=== PATIENT | female | born 1955 | race Caucasian/White ===

== ENCOUNTER 2017-07-18 05:51 | Day surgery (SDC) | payer BC ==
[2017-07-18] MEDS ORDERED: SUBLIMAZE 100 MCG/2 ML IV ONE (05:52)
[2017-07-18] MEDS ORDERED: TRANDATE 20 MG/5 ML SYRINGE IV ONE (05:52)
[2017-07-18] MEDS ORDERED: DIPRIVAN 200 MG/20 ML IV ONE (05:52)
[2017-07-18] MEDS ORDERED: Lactated Ringers 1,000 ML IV ONE ×2 (06:43→08:13)
[2017-07-18] MEDS ORDERED: Lactated Ringers 1,000 ML IV SCH (07:00)
--- NOTE | 2017-07-18 10:55 | OP ---
SURGERY DATE: 07/18/17 SURGERY TIME: 734 PREOPERATIVE DIAGNOSIS: 1. SCREENING COLONOSCOPY. 2. HISTORY OF COLON POLYPS. POSTOPERATIVE DIAGNOSIS: 1. NORMAL COLON. PROCEDURE: 1. Colonoscopy. SURGEON: Dr. Jeffy Ceaj. ANESTHESIA: MAC by Deshaun Esquivel CRNA. SPECIMENS: None. ESTIMATED BLOOD LOSS: None. DESCRIPTION OF PROCEDURE: After informed written consent was obtained, the patient was taken to the endoscopy suite. She underwent monitored anesthesia and a digital rectal exam showed normal sphincter tone and no internal lesions. The scope was inserted in the rectum and sequentially the entire colonic mucosa was traversed. The level of the cecum was reached and verified with direct visualization of the ileocecal valve. Upon withdrawal, careful mucosal inspection revealed no gross abnormalities. Before withdrawal, retroflexion was performed and showed no internal lesions. The scope was removed and the patient was transferred to the recovery room in excellent condition.
[2017-07-18 12:06] VITALS: O2SAT 100
[2017-07-18 12:07] VITALS: BP 138/76; PULSE 58
== END 2017-07-18 09:10 | disposition home or self-care (01) ==
LOC: SDC 05:51
PROVIDERS: ATTEND Family Medicine
PROC: 0DJD8ZZ Inspection of Lower Intestinal Tract, Via Natural or Artificial Opening Endoscopic (ICD-10-PCS; principal; 2017-07-18)
DX: Z12.11 Encounter for screening for malignant neoplasm of colon (principal); Z86.010 Personal history of colon polyps; I10 Essential (primary) hypertension
CPT/HCPCS: 00810; J2704; J3010

== ENCOUNTER 2019-03-29 03:41 | Emergency (ER) | payer BC ==
--- NOTE | 2019-03-29 04:13 | ERPHSYRPT ---
- History of Present Illness Time Seen by Provider: 03/29/19 04:00 Source: patient Exam Limitations: no limitations Patient Subjective Stated Complaint: SOB Triage Nursing Assessment: Patient ambulated into ED and transferred self to bed. Patient A+O X 3. Patient's skin pink, warm and dry. Patient complains of SOB since 0000 after getting up to use the restroom. Patient's lungs clear a/p anton. No edema noted. Heart tones audible. Patient denies pain or discomfort. Patient states she was treated last week with steroids for bronchititis. Physician History: 63 y/o white female, former smoker, presents with soa for weeks. has a electrical power engineer she see, mil pryor md, for htn. she has an appt with him 03/31/19. pt denies sig cp. denies abd pain. no cough or fever. seen at [facility] last week and dx with bronchitis. tx with steroids. sx not improved. Timing/Duration: week(s) (2) Activities at Onset: none Severity of Dyspnea-Max: mild Severity of Dyspnea-Current: mild Possible Cause: no prior episodes Modifying Factors: Improves With: exertion Associated Symptoms: constant, No cough, No chest pain/discomfort, No lightheadedness, No hemoptysis, No dizziness, No heaviness, No heart racing, No lightheadedness, No productive cough International travel in last 2 weeks: No Allergies/Adverse Reactions: Penicillins Allergy (Mild, Verified 03/29/19 03:44) Rash Sulfa (Sulfonamide Antibiotics) Allergy (Verified 03/29/19 03:44) Home Medications: Calcium [Natural Calcium] 500 mg PO DAILY 07/15/17 [History] Cholecalciferol (Vitamin D3) [Vitamin D3] 400 unit PO DAILY 07/15/17 [History] Losartan Potassium 50 mg [Cozaar 50 MG] 100 mg PO HS 07/15/17 [History] Multivitamin [Multivitamins] 1 each PO DAILY 07/15/17 [History] Raloxifene HCl 60 mg [Evista 60 MG] 60 mg PO DAILY 07/15/17 [History] hydroCHLOROthiazide [Hydrochlorothiazide] 1 tab PO DAILY 03/29/19 [History] Hx Influenza Vaccination/Date Given: Yes Hx Pneumococcal Vaccination/Date Given: No Immunizations Up to Date: Yes - Review of Systems Constitutional: No Symptoms Eyes: No Symptoms Ears, Nose, & Throat: No Symptoms Respiratory: Dyspnea Cardiac: No Symptoms, No Chest Pain Abdominal/Gastrointestinal: No Symptoms Genitourinary Symptoms: No Symptoms Musculoskeletal: No Symptoms Skin: No Symptoms Neurological: No Symptoms Psychological: No Symptoms Endocrine: No Symptoms Hematologic/Lymphatic: No Symptoms Immunological/Allergic: No Symptoms All Other Systems: Reviewed and Negative - Past Medical History Pertinent Past Medical History: Yes Neurological History: No Pertinent History ENT History: No Pertinent History Cardiac History: Hypertension Respiratory History: No Pertinent History Endocrine Medical History: No Pertinent History Musculoskeletal History: Other GI Medical History: Polyps History: No Pertinent History Psycho-Social History: No Pertinent History Female Reproductive Disorders: No Pertinent History Other Medical History: Hepatitis C years ago treated with Harvony. osteopenia - Past Surgical History Past Surgical History: Yes Neuro Surgical History: No Pertinent History Cardiac: No Pertinent History Respiratory: No Pertinent History Gastrointestinal: No Pertinent History Genitourinary: No Pertinent History Musculoskeletal: No Pertinent History Female Surgical History: Section - Social History Smoking Status: Former smoker Exposure to second hand smoke: No Drug Use: none Patient Lives Alone: Yes - Female History Hx Last Menstrual Period: Menopausal Hx Now: No - Nursing Vital Signs Nursing Vital Signs: Initial Vital Signs Temperature 97.6 F 03/29/19 03:46 Pulse Rate 67 03/29/19 03:46 Respiratory Rate 20 03/29/19 03:46 Blood Pressure 164/84 03/29/19 03:46 O2 Sat by Pulse Oximetry 100 03/29/19 03:46 Pain Scale Pain Intensity 0 - Physical Exam General Appearance: no apparent distress, alert, anxiety Eye Exam: PERRL/EOMI, eyes nml inspection Ears, Nose, Throat Exam: hearing grossly normal Neck Exam: normal inspection, non-tender, supple, full range of motion Respiratory Exam: normal breath sounds, lungs clear, airway intact, No chest tenderness, No respiratory distress, No rhonchi, No wheezing, No stridor Cardiovascular/Chest Exam: normal heart sounds, regular rate/rhythm, murmur Abdominal/Gastrointestinal Exam: soft, normal bowel sounds, No tenderness, No guarding Rectal Exam: not done Extremity Exam: non-tender Neurologic Exam: alert, oriented x 3, cooperative, lining setter II-XII nml as tested, normal mood/affect Skin Exam: normal color, warm, dry Lymphatic Exam: No adenopathy SpO2 Interpretation: normal SpO2: 100 O2 Delivery: Room Air - Course EKG Interpreted by Me: RATE ([id number]), Sinus Rhythm, NORMAL AXIS, NORMAL INTERVALS , NORMAL QRS, Other (no changes from comparison ekg dated 11/21/17) Ordered Tests: Active Orders 24 hr Category Date Time 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 Care 03/29/19 04:16 Active EKG-ER Only STAT Care 03/29/19 04:15 Active IV Insertion STAT Care 03/29/19 04:15 Active Pulse Oximetry (ED) STAT Care 03/29/19 04:15 Active CHEST 1 VIEW (PORTABLE) Stat Exams 03/29/19 04:15 Taken CBC W DIFF Stat Lab 03/29/19 04:20 Completed D-DIMER QUANTITATION Stat Lab 03/29/19 04:20 Completed Lactic Acid Stat Lab 03/29/19 04:28 Completed NT PRO BNP Stat Lab 03/29/19 04:20 Completed TROPONIN Q3H Lab 03/29/19 04:20 Completed TROPONIN Q3H Lab 03/29/19 07:15 Ordered TROPONIN Q3H Lab 03/29/19 10:15 Ordered TROPONIN Q3H Lab 03/29/19 13:15 Ordered TROPONIN Q3H Lab 03/29/19 16:15 Ordered Lab/Rad Data: Laboratory Result Diagrams 03/29/19 04:20 Laboratory Results 03/29/19 03/29/19 03/29/19 Range/Units 04:28 04:20 04:20 WBC (4.0-10.5) K/mm3 RBC (4.1-5.4) M/mm3 Hgb (12.0-16.0) gm/dl Hct (35-47) % MCV (78-100) fl MCH (26-32) pg MCHC (32-36) g/dl RDW (11.5-14.0) % Plt Count (150-450) K/mm3 MPV (6-9.5) fl Gran % (36.0-66.0) % Eos # (Auto) (0-0.5) Absolute Lymphs (auto) (1.0-4.6) Absolute Monos (auto) (0.0-1.3) Lymphocytes % (24.0-44.0) % Monocytes % (0.0-12.0) % Eosinophils % (0.00-5.0) % Basophils % (0.0-0.4) % Absolute Granulocytes (1.4-6.9) Basophils # (0-0.4) D-Dimer 351 (215-500) ng/mL Lactic Acid 0.7 (0.4-2.0) Troponin I (0.000-0.034) ng/mL NT-Pro-B Natriuret Pep 72.1 (0-900) pg/mL 03/29/19 03/29/19 Range/Units 04:20 04:20 WBC 9.8 (4.0-10.5) K/mm3 RBC 4.79 (4.1-5.4) M/mm3 Hgb 15.0 (12.0-16.0) gm/dl Hct 45.6 (35-47) % MCV 95.2 (78-100) fl MCH 31.3 (26-32) pg MCHC 32.9 (32-36) g/dl RDW 13.4 (11.5-14.0) % Plt Count 323 (150-450) K/mm3 MPV 10.3 H (6-9.5) fl Gran % 44.7 (36.0-66.0) % Eos # (Auto) 0.31 (0-0.5) Absolute Lymphs (auto) 4.24 (1.0-4.6) Absolute Monos (auto) 0.81 (0.0-1.3) Lymphocytes % 43.5 (24.0-44.0) % Monocytes % 8.3 (0.0-12.0) % Eosinophils % 3.2 (0.00-5.0) % Basophils % 0.3 (0.0-0.4) % Absolute Granulocytes 4.36 (1.4-6.9) Basophils # 0.03 (0-0.4) D-Dimer (215-500) ng/mL Lactic Acid (0.4-2.0) Troponin I < 0.012 (0.000-0.034) ng/mL NT-Pro-B Natriuret Pep (0-900) pg/mL - Progress Progress: unchanged Air Movement: good Progress Note: 03/29/19 05:18 cxr-no acute process. Blood Culture(s) Obtained: No Antibiotics given: No Counseled pt/family regarding: lab results, diagnosis, need for follow-up, rad results - Departure Departure Disposition: Home Clinical Impression: Shortness of breath Condition: Stable Critical Care Time: No Referrals: KIMMY TUCKER [Primary Care Provider] - Additional Instructions: take your medications as prescribed. keep your appointment with electrical power engineer .
[2019-03-29 04:22] LABS: BASOPHIL % 0.3 % (0.0-0.4); Basophil (Absolute #) 0.03 (0-0.4); Eosinophil % 3.2 % (0.00-5.0); Eosinophil (Absolute #) 0.31 (0-0.5); Granulocyte Absolute (ANC) 4.36 (1.4-6.9); Granulocytes % 44.7 % (36.0-66.0); Hematocrit 45.6 % (35-47); Lymphocyte (Absolute #) 4.24 (1.0-4.6); Lymphocytes % 43.5 % (24.0-44.0); Mean Cell Volume 95.2 fl (78-100); Mean Corpuscular Hemoglobin 31.3 pg (26-32); Mean Corpuscular Hgb Concent. 32.9 g/dl (32-36); Mean Platelet Volume 10.3 fl (6-9.5); Monocyte (Absolute #) 0.81 (0.0-1.3); Monocytes % 8.3 % (0.0-12.0); Platelet Count 323 K/mm3 (150-450); Red Blood Count 4.79 M/mm3 (4.1-5.4); Red Cell Distribution Width 13.4 % (11.5-14.0); White Blood Count 9.8 K/mm3 (4.0-10.5)
[2019-03-29 05:04] VITALS: PULSE 62
[2019-03-29 05:35] VITALS: BP 142/87; O2SAT 98
--- NOTE | 2019-03-29 08:43 | XRAY ---
Indication: Short of breath. Comparison: March 23, 2019. Portable apical lordotic chest again demonstrates normal heart and lungs with a few incidental calcified granulomas. No new/acute findings.
== END 2019-03-29 05:32 | disposition home or self-care (01) ==
LOC: ED 03:41
DX: R06.02 Shortness of breath (principal)
CPT/HCPCS: 36000; 36415; 71045; 83605; 83880; 84484; 85025; 85379; 93005; 93041; 94760; 99284

== ENCOUNTER 2021-11-30 17:35 | Emergency (ER) | payer BC ==
[2021-11-30 18:00] VITALS: BP 128/77; PULSE 91; O2SAT 98
[2021-11-30] MEDS ORDERED: TORAdol 30 mg Injection IM ONE (18:16)
[2021-11-30] MEDS ORDERED: TORAdol 30 mg Injection ONE (18:16)
--- NOTE | 2021-11-30 18:21 | ERPHSYRPT ---
- History of Present Illness Source: patient Exam Limitations: no limitations Patient Subjective Stated Complaint: Pt c/o of left lower back pain that radiates down the side of her hip and into her groin but does not go down her leg Triage Nursing Assessment: Pt brought to the ER by a friend, alyssa tomas, rates pain as 10/10, pulses normal, skin n/w/d, pt laying quietly on the bed and doesn't appear to be in any distress, pt started going to the pain clinic and he wanted her to go get an MRI before he does an injection so pt finally got the MRI done last week Friday but doesn't know the results, pt here for pain relief Physician History: 66 yo wf w L paraspinous pain w radiation to her L buttock and R groin x 2 wks. Pt is under care of pain management and had an MRI elsewhere last week for the same problem. Pain is 10 on scale and worse w movement/upright position. Pt had similar pain on the R which is why she sees pain management. She denies incontinence of bowel/bladder, dysuria/hematuria/fever/foot drop. Pt is on muscle relaxers for chronic pain. Timing/Duration: other (2 wks) Method of Injury: other (No injury) Quality: sharp Back Pain Location: paraspinous muscles (L paraspinous) Back Pain Radiation: buttocks (L groin) Severity of Pain-Max: severe Severity of Pain-Current: severe Modifying Factors: Improves With: movement Associated Symptoms: lower back pain, No fever, No chills, No sweating, No urinary incontinence, No loss of bowel control, No constipation, No nausea, No vomiting, No problems urinating, No light-headedness, No dizziness, No numbness in legs/feet, No weakness, No sensory/motor loss, No tingling in legs/feet, No muscle spasms Previous symptoms: same symptoms as today Allergies/Adverse Reactions: Penicillins Allergy (Mild, Verified 11/30/21 18:00) Rash Sulfa (Sulfonamide Antibiotics) Allergy (Verified 11/30/21 18:00) Home Medications: Calcium [Natural Calcium] 60 mg PO DAILY 07/15/17 [History] Cholecalciferol (Vitamin D3) [Vitamin D3] 400 unit PO DAILY 07/15/17 [History] Losartan Potassium 50 mg [Cozaar 50 MG] 100 mg PO HS 07/15/17 [History] Multivitamin [Multivitamins] 1 each PO DAILY 07/15/17 [History] Raloxifene HCl 60 mg [Evista 60 MG] 60 mg PO DAILY 07/15/17 [History] Chlorthalidone 25 mg PO DAILY 11/30/21 [History] Cyclobenzaprine HCl 5 mg PO TID 11/30/21 [History] Hx Influenza Vaccination/Date Given: Yes Hx Pneumococcal Vaccination/Date Given: No Travel Risk - International Travel Have you traveled outside of the country in past 3 weeks: No - Coronavirus Screening Are you exhibiting any of the following symptoms?: No Close contact with a COVID-19 positive Pt in past 14-21 Days: No - Vaccine Status Have you recieved a Covid-19 vaccination: 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[email or web address] - Review of Systems Constitutional: No Symptoms Eyes: No Symptoms Ears, Nose, & Throat: No Symptoms Respiratory: No Symptoms Cardiac: No Symptoms Abdominal/Gastrointestinal: No Symptoms Genitourinary Symptoms: No Symptoms Musculoskeletal: No Symptoms, Back Pain Skin: No Symptoms Neurological: No Symptoms Psychological: No Symptoms Endocrine: No Symptoms Hematologic/Lymphatic: No Symptoms Immunological/Allergic: No Symptoms - Past Medical History Pertinent Past Medical History: Yes Neurological History: No Pertinent History ENT History: No Pertinent History Cardiac History: Hypertension Respiratory History: No Pertinent History Endocrine Medical History: No Pertinent History Musculoskeletal History: Other GI Medical History: Polyps History: No Pertinent History Psycho-Social History: No Pertinent History Female Reproductive Disorders: No Pertinent History Other Medical History: Hepatitis C years ago treated with Harvony. osteopenia - Past Surgical History Past Surgical History: Yes Neuro Surgical History: No Pertinent History Cardiac: No Pertinent History Respiratory: No Pertinent History Gastrointestinal: No Pertinent History Genitourinary: No Pertinent History Musculoskeletal: No Pertinent History Female Surgical History: Section - Social History Smoking Status: Former smoker Exposure to second hand smoke: No Drug Use: none Patient Lives Alone: Yes Significant Family History: no pertinent family hx - Nursing Vital Signs Nursing Vital Signs: Initial Vital Signs Temperature 98.6 F 11/30/21 17:49 Pulse Rate 91 H 11/30/21 17:49 Blood Pressure 128/77 11/30/21 17:49 O2 Sat by Pulse Oximetry 98 11/30/21 17:49 Pain Scale Pain Intensity [Left Distal 10 Back] Pain Intensity 10 WNL - Physical Exam General Appearance: no apparent distress Eye Exam: PERRL/EOMI, eyes nml inspection Ears, Nose, Throat Exam: normal ENT inspection, TMs normal, pharynx normal, moist mucous membranes Neck Exam: normal inspection, non-tender, supple, full range of motion, No m eningismus, No mass, No Brudzinski, No Kernig's Respiratory Exam: normal breath sounds, lungs clear, airway intact Cardiovascular Exam: regular rate/rhythm, normal heart sounds, normal peripheral pulses, capillary refill <2 sec, No murmur Gastrointestinal Exam: soft, normal bowel sounds, No tenderness Back Exam: CVA tenderness, point tenderness (L paraspinous TTP) Extremity Exam: normal inspection, normal range of motion, pelvis stable Peripheral Pulses: carotid (R): 2+, carotid (L): 2+ Neurologic Exam: alert, oriented x 3, cooperative, skein yarn drier II-XII nml as tested, normal mood/affect, nml cerebellar function, nml station & gait, sensation nml, No motor deficits, No sensory deficit Skin Exam: normal color, warm, dry Lymphatic Exam: No adenopathy SpO2 Interpretation: normal SpO2: 98 O2 Delivery: Room Air - Course Nursing assessment & vital signs reviewed: Yes Ordered Tests: Medication Summary Discontinued Medications Generic Name Dose Route Start Last Admin Trade Name Juan F PRN Reason Stop Dose Admin Ketorolac Tromethamine 30 mg 11/30/21 18:16 11/30/21 18:18 Ketorolac Tromethamine 30 Mg/Ml Inj IM 11/30/21 18:17 30 mg STAT ONE Administration Ketorolac Tromethamine Confirm 11/30/21 18:16 Ketorolac Tromethamine 30 Mg/Ml Inj Administered 11/30/21 18:17 Dose 30 mg .ROUTE .STK-MED ONE - Progress Progress: improved Progress Note: 11/30/21 18:23 30mg IM Toradol Counseled pt/family regarding: diagnosis, need for follow-up - Departure Departure Disposition: Home Clinical Impression: Sciatica of left side Condition: Stable Critical Care Time: No Referrals: LANDRY ROBERTS MD [Primary Care Provider] - Follow up/PCP as directed Instructions: Low Back Pain (DC), Sciatica (DC) Additional Instructions: Continue w Muscle relaxers at home Follow up with your pain management physician Return to ER for worsening pain, burning when urinating, blood in urine, or temperature greater than 100.5 Prescriptions: Etodolac 400 mg [Lodine 400 mg] 400 mg PO BID PRN PRN #14 tablet PRN Reason: Pain
== END 2021-11-30 18:35 | disposition home or self-care (01) ==
LOC: ED 17:35
DX: M54.32 Sciatica, left side (principal); M79.18 Myalgia, other site; I10 Essential (primary) hypertension; Z79.899 Other long term (current) drug therapy
CPT/HCPCS: 96372; 99283; J1885

== ENCOUNTER 2021-12-01 18:26 | Emergency (ER) | payer BC ==
[2021-12-01] MEDS ORDERED: MORPHINE SULFATE 4 MG INJ IM ONE (19:10)
[2021-12-01] MEDS ORDERED: MORPHINE SULFATE 4 MG INJ ONE (19:15)
--- NOTE | 2021-12-01 19:17 | ERPHSYRPT ---
- History of Present Illness Time Seen by Provider: 12/01/21 18:39 Source: patient Exam Limitations: no limitations Patient Subjective Stated Complaint: pt reports lower left back pain that radiates down into her left groin and buttock. pt was referred to Dr Sorto by her PCP had an MRI 11/23 she states she cannot get in to see Dr Sorto for a F/U until 12/11. states she was seen in this ER last evening but the shot and prescription she received is not helping. Triage Nursing Assessment: pt is aox3, pupils perrl, afebrile, resps easy and non labored, cap refill < 3 seconds, radial pulses strong and equal, pt skin pink warm dry. pt ambulatory to trt room with slow steady gait, ROM sensation intact. Physician History: 66-year-old female with history of chronic back pain, hip pains, currently under pain management, recently MRI done was evaluated last night, was given Toradol returns with same pain in the left sacroiliac area with radiation to buttock, more with ambulation and some lateral numbness of left thigh. Patient did have similar kind of pain on the right side in the past. Denies any loss of bowel or bladder control. Patient also radiates to the left groin as well. No fall or trauma reported. Timing/Duration: week(s), gradual onset, worse Method of Injury: unknown Quality: sharp Back Pain Location: paraspinous muscles Back Pain Radiation: buttocks Severity of Pain-Max: severe Severity of Pain-Current: moderate Modifying Factors: Improves With: immobilization, pain medication. Worsens With: movement Associated Symptoms: sensory/motor loss, lower back pain, muscle spasms, No fever, No urinary incontinence, No loss of bowel control, No constipation, No nausea, No vomiting, No problems urinating, No light-headedness, No dizziness, No numbness in legs/feet, No weakness Previous symptoms: same symptoms as today Allergies/Adverse Reactions: Penicillins Allergy (Mild, Verified 12/01/21 18:41) Rash Sulfa (Sulfonamide Antibiotics) Allergy (Verified 12/01/21 18:41) Home Medications: Calcium [Natural Calcium] 60 mg PO DAILY 07/15/17 [History] Cholecalciferol (Vitamin D3) [Vitamin D3] 400 unit PO DAILY 07/15/17 [History] Losartan Potassium 50 mg [Cozaar 50 MG] 100 mg PO HS 07/15/17 [History] Multivitamin [Multivitamins] 1 each PO DAILY 07/15/17 [History] Raloxifene HCl 60 mg [Evista 60 MG] 60 mg PO DAILY 07/15/17 [History] Chlorthalidone 25 mg PO DAILY 11/30/21 [History] Cyclobenzaprine HCl 5 mg PO TID 11/30/21 [History] Hx Tetanus, Diphtheria Vaccination/Date Given: Yes Hx Influenza Vaccination/Date Given: Yes Hx Pneumococcal Vaccination/Date Given: Yes Immunizations Up to Date: Yes Travel Risk - International Travel Have you traveled outside of the country in past 3 weeks: No - Coronavirus Screening Are you exhibiting any of the following symptoms?: No Close contact with a COVID-19 positive Pt in past 14-21 Days: No - Vaccine Status Have you recieved a Covid-19 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: 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[employer] - Review of Systems Constitutional: No Symptoms Eyes: No Symptoms Respiratory: No Symptoms Cardiac: No Symptoms Abdominal/Gastrointestinal: No Symptoms Genitourinary Symptoms: No Symptoms Musculoskeletal: Back Pain, Injury Skin: No Symptoms Neurological: No Symptoms Psychological: No Symptoms Endocrine: No Symptoms Hematologic/Lymphatic: No Symptoms Immunological/Allergic: No Symptoms - Past Medical History Pertinent Past Medical History: Yes Neurological History: No Pertinent History ENT History: No Pertinent History Cardiac History: Hypertension Respiratory History: No Pertinent History Endocrine Medical History: No Pertinent History Musculoskeletal History: Other GI Medical History: Polyps History: No Pertinent History Psycho-Social History: No Pertinent History Female Reproductive Disorders: No Pertinent History Other Medical History: Hepatitis C years ago treated with Harvony. osteopenia - Past Surgical History Past Surgical History: Yes Neuro Surgical History: No Pertinent History Cardiac: No Pertinent History Respiratory: No Pertinent History Gastrointestinal: No Pertinent History Genitourinary: No Pertinent History Musculoskeletal: No Pertinent History Female Surgical History: Section - Social History Smoking Status: Former smoker Exposure to second hand smoke: No Drug Use: none Patient Lives Alone: Yes Significant Family History: no pertinent family hx - Nursing Vital Signs Nursing Vital Signs: Initial Vital Signs Temperature 98.0 F 12/01/21 18:29 Pulse Rate 95 H 12/01/21 18:29 Respiratory Rate 20 12/01/21 18:29 Blood Pressure 149/104 12/01/21 18:29 O2 Sat by Pulse Oximetry 97 12/01/21 18:29 Pain Scale Pain Intensity 5 - Physical Exam General Appearance: no apparent distress, alert Neck Exam: normal inspection, supple, full range of motion Respiratory Exam: normal breath sounds, lungs clear Cardiovascular Exam: regular rate/rhythm, normal heart sounds Gastrointestinal Exam: soft, normal bowel sounds, No tenderness Back Exam: normal inspection, decreased range of motion, muscle spasm, point tenderness (Left sacroiliac area), No normal range of motion, No vertebral tenderness Extremity Exam: normal inspection, normal range of motion, pelvis stable Neurologic Exam: alert, oriented x 3, cooperative Skin Exam: normal color SpO2 Interpretation: normal SpO2: 97 O2 Delivery: Room Air Ordered Tests: Medication Summary Discontinued Medications Generic Name Dose Route Start Last Admin Trade Name Freq PRN Reason Stop Dose Admin Morphine Sulfate 4 mg 12/01/21 19:10 12/01/21 19:16 Morphine Sulfate 4 Mg/Ml Injection IM 12/01/21 19:11 4 mg STAT ONE Administration Morphine Sulfate Confirm 12/01/21 19:15 Morphine Sulfate 4 Mg/Ml Injection Administered 12/01/21 19:16 Dose 4 mg .ROUTE .STK-MED ONE - Progress Progress: improved Progress Note: She is given morphine for symptomatic relief, on reevaluation her pain is improved and is able to ambulate much better in the ER. I believe patient has sciatica and will give her symptomatic treatment for pain until she can follow-u p with her pain management and have results of MRI. No cauda equina symptoms and pain is similar to previous, do not think needs any imaging or other work-up and is stable for discharge with outpatient follow-up. Counseled pt/family regarding: diagnosis, need for follow-up - Departure Departure Disposition: Home Clinical Impression: Sciatica of left side Condition: Stable Critical Care Time: No Referrals: LANDRY ROBERTS MD [Primary Care Provider] - Follow up/PCP as directed (2Days for reevaluation) JESSE SORTO MD [CONSULTING PHYSICIAN] - Follow up/PCP as directed (2 days for reevaluation) Instructions: Low Back Pain (DC), Sciatica (DC) Additional Instructions: Take pain medication and muscle relaxants as needed. Follow-up with primary care and pain management for reevaluation. Return to ER for worsening pain, numbness, weakness, loss of bowel or bladder control/perineal numbness. Prescriptions: Hydrocodone/Acetaminophen [Hydrocodone-Acetamin 5-325 mg] 1 tab PO Q6HPRN PRN 3 Days #12 tablet MDD 4 PRN Reason: Pain
[2021-12-01 19:29] VITALS: BP 158/100; PULSE 99
[2021-12-01 19:45] VITALS: O2SAT 97
== END 2021-12-01 19:36 | disposition home or self-care (01) ==
LOC: ED 18:26
DX: M54.32 Sciatica, left side (principal); R20.0 Anesthesia of skin; I10 Essential (primary) hypertension; Z79.899 Other long term (current) drug therapy; Z79.891 Long term (current) use of opiate analgesic
CPT/HCPCS: 96372; 99283; J2270

== ENCOUNTER → 2021-12-12 | Day surgery (SDC) | payer BC ==
[~2021-12-12] MED LIST: BUPIVACAINE 0.5% VIAL IJ ONE; Depo-Medrol 40 MG/ML IM ONE; Xylocaine 1% Vial 30 ML PF IJ ONE
--- NOTE | 2021-12-12 18:29 | XRAY ---
Indication: Left hip injection. Intraoperative fluoroscopy provided for 50 seconds. Single digital spot image submitted for interpretation demonstrates needle tip projecting lateral to the left femur neck. Small amount of contrast injected for needle tip placement. Correlate with intraoperative findings/report.
--- NOTE | 2021-12-13 09:20 | XRAY ---
50 seconds fluoroscopy time in surgery for intra-articular injection of the left hip.
== END ==
LOC: SDC-PAIN 13:50
PROVIDERS: ATTEND Psychiatry & Neurology Pain Medicine
DX: M16.12 Unilateral primary osteoarthritis, left hip (principal); I10 Essential (primary) hypertension; Z79.899 Other long term (current) drug therapy
CPT/HCPCS: 20610; 73501; 77002; J1030; J2001; Q9966

== ENCOUNTER 2023-11-19 17:41 | Emergency (ER) | payer MEDICARE ==
--- NOTE | 2023-11-19 17:49 | ERPHSYRPT ---
- History of Present Illness Time Seen by Provider: 11/19/23 17:48 Source: patient, family Exam Limitations: no limitations Physician History: This is a 68-year-old white female patient of Dr. Roberts who had routine labs drawn this this afternoon at 1550. Patient was notified just before she arrived to our emergency department of a low potassium level of 2.8. No magnesium level was drawn. Patient is asymptomatic. She is not on any potassium supplementation. However, she is on diuretics. I contacted the lab and asked them to draw a magnesium level on the blood that they had down there from approximately an hour and 15 minutes ago. Patient does have a history of hypertension Timing/Duration: today Severity: mild Associated Symptoms: denies symptoms Allergies/Adverse Reactions: Penicillins Allergy (Mild, Verified 12/01/21 18:41) Rash Sulfa (Sulfonamide Antibiotics) Allergy (Verified 12/01/21 18:41) Home Medications: Calcium [Natural Calcium] 60 mg PO DAILY 07/15/17 [History] Cholecalciferol (Vitamin D3) [Vitamin D3] 400 unit PO DAILY 07/15/17 [History] Losartan Potassium 50 mg [Cozaar 50 MG] 100 mg PO HS 07/15/17 [History] Multivitamin [Multivitamins] 1 each PO DAILY 07/15/17 [History] Raloxifene HCl 60 mg [Evista 60 MG] 60 mg PO DAILY 07/15/17 [History] Chlorthalidone 25 mg PO DAILY 11/30/21 [History] Simvastatin 10 mg [Zocor 10MG] 10 mg PO DAILY 11/19/23 [History] Hx Tetanus, Diphtheria Vaccination/Date Given: Yes Hx Influenza Vaccination/Date Given: Yes Hx Pneumococcal Vaccination/Date Given: Yes Travel Risk - International Travel Have you traveled outside of the country in past 3 weeks: No - Emerging Infectious Disease Are you exhibiting symptoms associated with any current EIDs: No - Vaccine Status Hx Covid Vaccintation/Booster/Date Given: No - Review of Systems Constitutional: No Symptoms Eyes: No Symptoms Ears, Nose, & Throat: No Symptoms Respiratory: No Symptoms Cardiac: No Symptoms Abdominal/Gastrointestinal: No Symptoms Genitourinary Symptoms: No Symptoms Musculoskeletal: No Symptoms Skin: No Symptoms Neurological: No Symptoms Psychological: No Symptoms Endocrine: No Symptoms Hematologic/Lymphatic: No Symptoms Immunological/Allergic: No Symptoms All Other Systems: Reviewed and Negative - Past Medical History Pertinent Past Medical History: Yes Neurological History: No Pertinent History ENT History: No Pertinent History Cardiac History: Hypertension Respiratory History: COPD Endocrine Medical History: No Pertinent History Musculoskeletal History: Osteoarthritis GI Medical History: Polyps History: No Pertinent History Psycho-Social History: No Pertinent History Female Reproductive Disorders: No Pertinent History Other Medical History: HEPITIS C CURED. 2 FRACTURES IN THE L-SPINE - Past Surgical History Past Surgical History: Yes Neuro Surgical History: No Pertinent History Cardiac: No Pertinent History Respiratory: No Pertinent History Gastrointestinal: No Pertinent History Genitourinary: No Pertinent History Musculoskeletal: No Pertinent History Female Surgical History: Section Significant Family History: no pertinent family hx - Social History Smoking Status: Former smoker Exposure to second hand smoke: No Drug Use: none Patient Lives Alone: Yes - Nursing Vital Signs Nursing Vital Signs: Initial Vital Signs Temperature 98.3 F 11/19/23 17:49 Pulse Rate 98 H 11/19/23 17:49 Respiratory Rate 20 11/19/23 17:49 Blood Pressure 136/89 11/19/23 17:49 O2 Sat by Pulse Oximetry 99 11/19/23 17:49 Pain Scale Pain Intensity 0 - Physical Exam General Appearance: no apparent distress, alert Eye Exam: PERRL/EOMI, eyes nml inspection Ears, Nose, Throat Exam: normal ENT inspection, moist mucous membranes Neck Exam: normal inspection, non-tender, supple, full range of motion Respiratory Exam: normal breath sounds, lungs clear, airway intact, No chest tenderness, No respiratory distress Cardiovascular Exam: regular rate/rhythm, normal heart sounds, normal peripheral pulses Gastrointestinal/Abdomen Exam: soft, normal bowel sounds, No tenderness Pelvic Exam: not done Rectal Exam: not done Back Exam: normal inspection, normal range of motion, No CVA tenderness, No vertebral tenderness Extremity Exam: normal inspection, normal range of motion, pelvis stable Neurologic Exam: alert, oriented x 3, cooperative, yield engineer II-XII nml as tested, normal mood/affect, nml cerebellar function, nml station & gait, sensation nml Skin Exam: normal color, warm, dry Lymphatic Exam: No adenopathy SpO2 Interpretation: normal O2 Delivery: Room Air - Course Nursing assessment & vital signs reviewed: Yes Ordered Tests: Active Orders 24 hr Category Date Time Status Telemetry q4h Care 11/19/23 17:49 Active MAG [MAGNESIUM] Stat Lab 11/19/23 03:15 Completed Medication Summary Generic Name Dose Route Start Last Admin Trade Name Freq PRN Reason Stop Dose Admin Potassium Chloride 20 meq in 100 mls @ 50 mls/hr 11/19/23 17:49 11/19/23 17:58 Potassium Chloride 20 Meq In Water 100ml IV 11/19/23 19:48 50 mls/hr STAT ONE Administration Sodium Chloride 1,000 mls @ 100 mls/hr 11/19/23 18:00 11/19/23 17:58 Sodium Chloride 0.9% 1000 Ml IV 12/19/23 17:59 100 mls/hr .Q10H WHITNEY Administration Discontinued Medications Generic Name Dose Route Start Last Admin Trade Name Freq PRN Reason Stop Dose Admin Potassium Chloride Confirm 11/19/23 17:56 Potassium Chloride 20 Meq In Water 100ml Administered 11/19/23 17:57 Dose 100 mls @ ud IV .STK-MED ONE Potassium Chloride 20 meq 11/19/23 17:49 11/19/23 17:57 Potassium Chloride Tab 10 Meq Tab PO 11/19/23 17:50 20 meq STAT ONE Administration Potassium Chloride Confirm 11/19/23 17:55 Potassium Chloride Tab 10 Meq Tab Administered 11/19/23 17:56 Dose 20 meq .ROUTE .STK-MED ONE Lab/Rad Data: Laboratory Results 11/19/23 Range/Units 03:15 Magnesium 2.1 (1.6-2.3) mg/dL - Progress Progress: unchanged Progress Note: 11/19/23 18:07 My medical decision making and the assignment of low level of complexity to this patient's medical issue today is based on review of the patient's past medical history, review of the patient's medication list, review of the patient's drug allergy list, history present illness and physical findings on examination. The patient already had a BMP drawn. I called lab and added a magnesium to the blood draw that was performed approximate an hour and 15 minutes ago. We will place an intravenous line and infuse a K rider 20 mill equivalents intravenously x 1 and also provide the patient with 20 mill equivalents of potassium chloride tablets. If need be, we will also provide the patient with supplementation of magnesium. 11/19/23 18:39 I am transferring the care of this patient to Dr. Martinez at shift change. I have discussed this patient's history, presenting complaint physical findings and laboratory results thus far. He will monitor this patient and make final disposition. Counseled pt/family regarding: lab results, diagnosis, need for follow-up - Departure Departure Disposition: Home Clinical Impression: Hypokalemia Condition: Stable Critical Care Time: No Referrals: LANDRY ROBERTS MD [Primary Care Provider] - Follow up/PCP as directed
[2023-11-19 17:54] VITALS: TEMP 98.3
[2023-11-19] MEDS ORDERED: Sodium Chloride 0.9% 1000 ML 1,000 ML ONE (17:55)
[2023-11-19] MEDS ORDERED: Klor Con ONE ×2 (17:55→19:40)
[2023-11-19] MEDS ORDERED: POTASSIUM CHLORIDE 20 mEq IN WATER 100ML 100 ML IV ONE ×2 (17:56→19:40)
[2023-11-19] MEDS: Klor Con PO ONE ×2 (17:57→19:42)
[2023-11-19] MEDS: Sodium Chloride 0.9% 1000 ML 1,000 ML IV SCH (17:58)
[2023-11-19] MEDS: POTASSIUM CHLORIDE 20 mEq IN WATER 100ML 20 MEQ/100 ML BAG IV ONE ×2 (17:58→19:44)
[2023-11-19 22:30] LABS: ALBUMIN 3.8 g/dL (3.5-5.0); ANION GAP 7.2 MEQ/L (5-15); BILIRUBIN,TOTAL 0.2 mg/dL (0.2-1.3); Calcium 8.7 mg/dL (8.4-10.2); Creatinine 1 0.93 mg/dL (0.52-1.04); EST GLOMERULAR FILTRATION RATE 67.4 ML/MIN; Total Protein 6.6 g/dL (6.3-8.2)
[2023-11-19 22:31] LABS: Potassium 3.4 mmol/L (3.5-5.1)
[2023-11-19 23:11] VITALS: O2SAT 97
[2023-11-19 23:48] VITALS: BP 116/59; PULSE 80; RESP 14
== END 2023-11-19 23:53 | disposition home or self-care (01) ==
LOC: ED 17:41
DX: E87.6 Hypokalemia (principal); R07.9 Chest pain, unspecified; I10 Essential (primary) hypertension; Z79.899 Other long term (current) drug therapy; Z28.310 Unvaccinated for COVID-19
CPT/HCPCS: 36000; 36415; 80053; 83735; 84484; 93005; 93041; 96360; 96361; 96365; 96366; 99285; J3480; A9270-GY

== ENCOUNTER 2023-12-18 19:13 | Emergency (ER) | payer MEDICARE ==
[2023-12-18 19:34] VITALS: TEMP 98.2
[2023-12-18 19:40] LABS: Absolute Neutrophil Ct (ANC) 5.08 x10^3/uL (1.4-6.9); BASOPHIL % 0.6 % (0.0-0.4); Basophil (Absolute #) 0.05 x10^3/uL (0-0.4); Eosinophil % 4.2 % (0.00-5.0); Eosinophil (Absolute #) 0.34 x10^3/uL (0-0.5); Hematocrit 41.4 % (35-47); Hemoglobin 13.9 g/dL (12.0-16.0); IMMATURE GRAN # 0.02 x10^3u/L (0.00-0.03); IMMATURE GRAN % 0.2 % (0.00-0.4); Lymphocyte (Absolute #) 2.06 x10^3/uL (1.0-4.6); Lymphocytes % 25.2 % (24.0-44.0); Mean Cell Volume 90.8 fL (78-100); Mean Corpuscular Hemoglobin 30.5 pg (26-32); Mean Corpuscular Hgb Concent. 33.6 g/dL (32-36); Mean Platelet Volume 9.5 fL (7.5-11.0); Monocyte (Absolute #) 0.61 x10^3/uL (0.0-1.3); Monocytes % 7.5 % (0.0-12.0); Neutrophil % 62.3 % (36.0-66.0); Platelet Count 336 x10^3/uL (150-450); Red Blood Count 4.56 x10^6/uL (4.1-5.4); Red Cell Distribution Width 13.2 % (11.5-14.0); White Blood Count 8.2 x10^3/uL (4.0-10.5)
[2023-12-18 19:55] LABS: ALBUMIN 4.6 g/dL (3.5-5.0); ANION GAP 10.5 MEQ/L (5-15); BILIRUBIN,TOTAL 0.5 mg/dL (0.2-1.3); Calcium 9.3 mg/dL (8.4-10.2); Creatinine 1 0.95 mg/dL (0.52-1.04); EST GLOMERULAR FILTRATION RATE 65.7 ML/MIN; Potassium 3.3 mmol/L (3.5-5.1); Total Protein 7.7 g/dL (6.3-8.2)
[2023-12-18 20:06] LABS: Appearance Clear (Clear); Bacteria None Seen /HPF (None Seen); Bilirubin Negative (Negative); Blood Moderate (Negative); Epithelial Cells None Seen /HPF (None Seen); Glucose, Urine Negative (Negative); Hyaline Casts NONE SEEN /LPF (0-2); Ketones Negative (Negative); Leukocyte Esterase Negative (Negative); Nitrite Negative (Negative); Ph 6.5 (4.6-8.0); Protein,Urine Dip Negative (Negative); Urobilinogen 0.2 mg/dL (0.2); WBC 0-2 /HPF (0-5)
[2023-12-18 20:12] LABS: ADD URINE CULTURE? NO (NO)
[2023-12-18 20:15] VITALS: PULSE 87; RESP 16
--- NOTE | 2023-12-18 20:27 | ERPHSYRPT ---
- History of Present Illness Time Seen by Provider: 12/18/23 19:26 Source: patient Exam Limitations: no limitations Patient Subjective Stated Complaint: pt states that the doctor's office called and said her potassium was 2.4 Triage Nursing Assessment: pt ambulated into the er; pt is axo x4; c/o low potassium; pt denies pain; clear apical heart tone; clear lung sounds in all lobes; no respiratory distress present; strong anton radial pulses; strong anton pedal pulse; no edema present; skin PDW; vitals wnl Physician History: 68-year-old female with history of hypertension, hyperlipidemia, presented in the ER with low potassium checked on blood work earlier today. Patient reports she has history of hypokalemia in the past. She went to Dr. Roberts for her routine workup and it was found critically low and is sent in here for further evaluation. She denies any chest pain palpitations or shortness of breath. No vomiting or diarrhea reported Allergies/Adverse Reactions: Penicillins Allergy (Mild, Verified 12/18/23 19:21) Rash Sulfa (Sulfonamide Antibiotics) Allergy (Verified 12/18/23 19:21) Home Medications: Calcium [Natural Calcium] 60 mg PO DAILY 07/15/17 [History] Cholecalciferol (Vitamin D3) [Vitamin D3] 400 unit PO DAILY 07/15/17 [History] Losartan Potassium 50 mg [Cozaar 50 MG] 100 mg PO HS 07/15/17 [History] Multivitamin [Multivitamins] 1 each PO DAILY 07/15/17 [History] Raloxifene HCl 60 mg [Evista 60 MG] 60 mg PO DAILY 07/15/17 [History] Chlorthalidone 25 mg PO DAILY 11/30/21 [History] Simvastatin 10 mg [Zocor 10MG] 10 mg PO DAILY 11/19/23 [History] Fluticasone/Vilanterol [Breo Ellipta 200-25 Mcg Inhalr] 1 puff IH DAILY 12/18/23 [History] Potassium Chloride [Klor-Con 10] 30 meq PO BID 12/18/23 [History] Hx Tetanus, Diphtheria Vaccination/Date Given: Yes Hx Influenza Vaccination/Date Given: Yes Hx Pneumococcal Vaccination/Date Given: Yes Immunizations Up to Date: No Travel Risk - International Travel Have you traveled outside of the country in past 3 weeks: No - Emerging Infectious Disease Are you exhibiting symptoms associated with any current EIDs: No - Review of Systems Constitutional: No Symptoms Ears, Nose, & Throat: No Symptoms Respiratory: No Symptoms Cardiac: No Symptoms Abdominal/Gastrointestinal: No Symptoms Genitourinary Symptoms: No Symptoms Musculoskeletal: No Symptoms Skin: No Symptoms Neurological: No Symptoms Endocrine: No Symptoms Hematologic/Lymphatic: No Symptoms Immunological/Allergic: No Symptoms - Past Medical History Pertinent Past Medical History: Yes Neurological History: No Pertinent History ENT History: No Pertinent History Cardiac History: Hypertension Respiratory History: COPD Endocrine Medical History: No Pertinent History Musculoskeletal History: Osteoarthritis GI Medical History: Polyps History: No Pertinent History Psycho-Social History: No Pertinent History Female Reproductive Disorders: No Pertinent History Other Medical History: HEPITIS C CURED. 2 FRACTURES IN THE L-SPINE - Past Surgical History Past Surgical History: Yes Neuro Surgical History: No Pertinent History Cardiac: No Pertinent History Respiratory: No Pertinent History Gastrointestinal: No Pertinent History Genitourinary: No Pertinent History Musculoskeletal: No Pertinent History Female Surgical History: Section Significant Family History: no pertinent family hx - Social History Smoking Status: Former smoker Exposure to second hand smoke: No Drug Use: none Patient Lives Alone: Yes - Nursing Vital Signs Nursing Vital Signs: Initial Vital Signs Temperature 98.2 F 12/18/23 19:25 Pulse Rate 91 H 12/18/23 19:25 Respiratory Rate 22 12/18/23 19:25 Blood Pressure 141/80 12/18/23 19:25 O2 Sat by Pulse Oximetry 97 12/18/23 19:25 Pain Scale Pain Intensity 0 - Physical Exam General Appearance: no apparent distress, alert Eye Exam: PERRL/EOMI Ears, Nose, Throat Exam: normal ENT inspection Neck Exam: normal inspection, supple, full range of motion Respiratory Exam: normal breath sounds, lungs clear Cardiovascular Exam: regular rate/rhythm, normal heart sounds Gastrointestinal/Abdomen Exam: soft, normal bowel sounds, No tenderness Back Exam: normal inspection Extremity Exam: normal inspection, normal range of motion Neurologic Exam: alert, oriented x 3, cooperative, certified detention deputy II-XII nml as tested Skin Exam: normal color SpO2 Interpretation: normal SpO2: 96 O2 Delivery: Room Air - Course EKG Interpreted by Me: RATE (92), Sinus Rhythm, NORMAL AXIS, prolonged QT interval, Q-wave Ordered Tests: Active Orders 24 hr Category Date Time Status Director Of Pulmonary Unit STAT Care 12/18/23 19:40 Active EKG-ER Only STAT Care 12/18/23 19:40 Active IV Insertion STAT Care 12/18/23 19:40 Active CBC W DIFF Stat Lab 12/18/23 19:30 Completed CMP Stat Lab 12/18/23 19:30 Completed MAG [MAGNESIUM] Stat Lab 12/18/23 19:30 Completed UA W/RFX UR CULTURE Stat Lab 12/18/23 19:57 Completed Lab/Rad Data: Laboratory Result Diagrams 12/18/23 19:30 12/18/23 19:30 Laboratory Results 12/18/23 12/18/23 12/18/23 Range/Units 19:57 19:30 19:30 WBC (4.0-10.5) x10^3/uL RBC (4.1-5.4) x10^6/uL Hgb (12.0-16.0) g/dL Hct (35-47) % MCV (78-100) fL MCH (26-32) pg MCHC (32-36) g/dL RDW (11.5-14.0) % Plt Count (150-450) x10^3/uL MPV (7.5-11.0) fL Gran % (36.0-66.0) % Immature Gran % (Auto) (0.00-0.4) % Nucleat RBC Rel Count (0.00-0.1) % Eos # (Auto) (0-0.5) x10^3/uL Immature Gran # (Auto) (0.00-0.03) x10^3u/L Absolute Lymphs (auto) (1.0-4.6) x10^3/uL Absolute Monos (auto) (0.0-1.3) x10^3/uL Absolute Nucleated RBC (0.00-0.01) x10^3u/L Lymphocytes % (24.0-44.0) % Monocytes % (0.0-12.0) % Eosinophils % (0.00-5.0) % Basophils % (0.0-0.4) % Absolute Granulocytes (1.4-6.9) x10^3/uL Basophils # (0-0.4) x10^3/uL Sodium 137 D (135-145) mmol/L Potassium 3.3 L D (3.5-5.1) mmol/L Chloride 99 D (98-107) mmol/L Carbon Dioxide 31 H (22-30) mmol/L Anion Gap 10.5 (5-15) MEQ/L BUN 24 H (7-17) mg/dL Creatinine 0.95 (0.52-1.04) mg/dL Estimated GFR 65.7 ML/MIN Glucose 109 H (74-106) mg/dL Calcium 9.3 D (8.4-10.2) mg/dL Magnesium 1.9 (1.6-2.3) mg/dL Total Bilirubin 0.50 (0.2-1.3) mg/dL AST 39 H (14-36) U/L ALT 37 H (0-35) U/L Alkaline Phosphatase 52 (38-126) U/L Serum Total Protein 7.7 (6.3-8.2) g/dL Albumin 4.6 (3.5-5.0) g/dL Urine Color Yellow (Yellow) Urine Appearance Clear (Clear) Urine pH 6.5 (4.6-8.0) Ur Specific [place] 1.010 (1.005-1.030) Urine Protein Negative (Negative) Urine Glucose (UA) Negative (Negative) mg/dL Urine Ketones Negative (Negative) Urine Blood Moderate A (Negative) Urine Nitrite Negative (Negative) Urine Bilirubin Negative (Negative) Urine Urobilinogen 0.2 (0.2) mg/dL Ur Leukocyte Esterase Negative (Negative) U Hyaline Cast (Auto) NONE SEEN (0-2) /LPF Urine Microscopic RBC 11-20 A (0-5) /HPF Urine Microscopic WBC 0-2 (0-5) /HPF Ur Epithelial Cells None Seen (None Seen) /HPF Urine Bacteria None Seen (None Seen) /HPF Urine Culture Reflexed NO (NO) 12/18/23 Range/Units 19:30 WBC 8.2 (4.0-10.5) x10^3/uL RBC 4.56 (4.1-5.4) x10^6/uL Hgb 13.9 (12.0-16.0) g/dL Hct 41.4 (35-47) % MCV 90.8 (78-100) fL MCH 30.5 (26-32) pg MCHC 33.6 (32-36) g/dL RDW 13.2 (11.5-14.0) % Plt Count 336 (150-450) x10^3/uL MPV 9.5 (7.5-11.0) fL Gran % 62.3 (36.0-66.0) % Immature Gran % (Auto) 0.2 (0.00-0.4) % Nucleat RBC Rel Count 0.0 (0.00-0.1) % Eos # (Auto) 0.34 (0-0.5) x10^3/uL Immature Gran # (Auto) 0.02 (0.00-0.03) x10^3u/L Absolute Lymphs (auto) 2.06 (1.0-4.6) x10^3/uL Absolute Monos (auto) 0.61 (0.0-1.3) x10^3/uL Absolute Nucleated RBC 0.00 (0.00-0.01) x10^3u/L Lymphocytes % 25.2 (24.0-44.0) % Monocytes % 7.5 (0.0-12.0) % Eosinophils % 4.2 (0.00-5.0) % Basophils % 0.6 (0.0-0.4) % Absolute Granulocytes 5.08 (1.4-6.9) x10^3/uL Basophils # 0.05 (0-0.4) x10^3/uL Sodium (135-145) mmol/L Potassium (3.5-5.1) mmol/L Chloride (98-107) mmol/L Carbon Dioxide (22-30) mmol/L Anion Gap (5-15) MEQ/L BUN (7-17) mg/dL Creatinine (0.52-1.04) mg/dL Estimated GFR ML/MIN Glucose (74-106) mg/dL Calcium (8.4-10.2) mg/dL Magnesium (1.6-2.3) mg/dL Total Bilirubin (0.2-1.3) mg/dL AST (14-36) U/L ALT (0-35) U/L Alkaline Phosphatase (38-126) U/L Serum Total Protein (6.3-8.2) g/dL Albumin (3.5-5.0) g/dL Urine Color (Yellow) Urine Appearance (Clear) Urine pH (4.6-8.0) Ur Specific [place] (1.005-1.030) Urine Protein (Negative) Urine Glucose (UA) (Negative) mg/dL Urine Ketones (Negative) Urine Blood (Negative) Urine Nitrite (Negative) Urine Bilirubin (Negative) Urine Urobilinogen (0.2) mg/dL Ur Leukocyte Esterase (Negative) U Hyaline Cast (Auto) (0-2) /LPF Urine Microscopic RBC (0-5) /HPF Urine Microscopic WBC (0-5) /HPF Ur Epithelial Cells (None Seen) /HPF Urine Bacteria (None Seen) /HPF Urine Culture Reflexed (NO) - Progress Progress: unchanged Progress Note: 12/18/23 21:26 68-year-old is evaluated in the ER for hypokalemia checked on labs earlier today. Patient is asymptomatic. She does take potassium at home every day. Patient EKG showed sinus rhythm with no acute ischemic changes and no T wave changes. Recheck potassium is 3.3 which is reconfirmed. Normal magnesium. She is offered to have potassium here but she does not want and will take it once home. Is minimally low. She is also counseled about potassium containing diet intake. Can follow-up recommended. Counseled pt/family regarding: lab results, diagnosis, need for follow-up Medical Desision Making - Diagnostic Testing Diagnostic test were ordered, analyzed, and reviewed by me: Yes - Departure Departure Disposition: Home Clinical Impression: Hypokalemia Condition: Stable Critical Care Time: No Referrals: LANDRY ROBERTS MD [Primary Care Provider] - Follow up with PCP 1 day Instructions: Hypokalemia (DC) Additional Instructions: Take your potassium once at home. Follow-up with Dr. Roberts for reevaluation in 1 to 2 days. Return to ER for having chest pain palpitations shortness of breath, feeling weak fatigued and tired etc.
[2023-12-18 21:07] VITALS: BP 113/67
[2023-12-18 21:29] VITALS: O2SAT 96
== END 2023-12-18 21:50 | disposition home or self-care (01) ==
LOC: ED 19:13
DX: E87.6 Hypokalemia (principal); I10 Essential (primary) hypertension; E78.5 Hyperlipidemia, unspecified; Z79.899 Other long term (current) drug therapy
CPT/HCPCS: 36000; 36415; 80053; 81001; 83735; 85025; 93005; 93041; 99284